=== PATIENT | male | born 1955 | race Caucasian/White ===

== ENCOUNTER 2017-07-14 21:12 | Emergency (ER) | payer BC ==
[~2017-07-14] VITALS: Ht 180.3 cm; Wt 76.0 kg
[2017-07-14 21:15] VITALS: BP 186/84; PULSE 61; RESP 16; TEMP 97.8; O2SAT 99
--- NOTE | 2017-07-14 21:28 | PD ---
Physical Exam Date Seen by Provider: Jul 14, 2017 Time Seen by Provider: 21:25 Narrative Pt is a 61 year old male presenting to the ED for evaluation of nausea, vomiting , body aches. This has been ongoing for approx. 12 hours. Pt reports abdominal pain. The pain is epigastric, clenching in nature when he attempts to eat or drink. Pt reports subjective fevers and sweats. Pt states the pain is a 5/10. VSS, awaiting bed placement. Data Data Last Documented VS Vital Signs Date Time Temp Pulse Resp B/P (MAP) Pulse Ox O2 Delivery O2 Flow Rate FiO2 07/14/17 21:15 97.8 61 16 186/84 (118) 99 Room Air [facility] Supervised Visit with CHALINO: Jen Allen Jul 14, 2017 21:28
[2017-07-14] MEDS ORDERED: SODIUM CHLOR 0.9% 1000 ML INJ 1,000 ML IV SCH (21:51)
[2017-07-14] MEDS ORDERED: ONDANSETRON HCL 4 MG/2 ML VIAL IVP ONE (22:00)
[2017-07-14] MEDS ORDERED: SODIUM CHLORIDE 0.9% FLUSH 10 ML FLUSH IV FLUSH PRN (22:00)
[2017-07-14] MEDS ORDERED: ALUMINUM/MAGNESIUM/SIMETH 30 ML CUP PO ONE (22:00)
[2017-07-14] MEDS ORDERED: LIDOCAINE VISCOUS 2% SOLN 15 ML UDC PO ONE (22:00)
[2017-07-14] MEDS ORDERED: PANTOPRAZOLE SODIUM 40 MG VIAL IVP ONE (22:00)
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
[2017-07-14 22:11] VITALS: BP 171/74; PULSE 61; O2SAT 99
[2017-07-14 22:54] LABS: BASOPHIL % 0.2 % (0.0-2.0); EOSINOPHIL % 0.1 % (0.0-4.0); HEMATOCRIT 48.4 % (39.0-51.0); LYMPH % 12.3 % (9.0-44.0); LYMPHOCYTE # 1.3 TH/MM3 (1.0-4.8); MEAN CELL VOLUME 91.8 FL (80.0-100.0); MEAN CORPUSCULAR HEMOGLOBIN 31.7 PG (27.0-34.0); MEAN CORPUSCULAR HGB CONC 34.5 % (32.0-36.0); MONO % 3.3 % (0.0-8.0); NEUT % 84.1 % (16.0-70.0); PLATELET COUNT 154 TH/MM3 (150-450); RED BLOOD COUNT 5.27 MIL/MM3 (4.50-5.90); RED CELL DISTRIBUTION WIDTH 13.4 % (11.6-17.2); WHITE BLOOD COUNT 10.7 TH/MM3 (4.0-11.0)
[2017-07-14 22:56] LABS: HEMO FLAGS AUTO DIFF
[2017-07-14 23:13] LABS: ALKALINE PHOSPHATASE 65 U/L (45-117); TOTAL BILIRUBIN ADULT 0.8 MG/DL (0.2-1.0)
[2017-07-14 23:15] LABS: PLATELET ESTIMATE SMEAR NORMAL (NORMAL)
[2017-07-14 23:16] LABS: PLATELET MORPHOLOGY NORMAL (NORMAL); SCAN/DIFF AUTO DIFF CONFIRMED
[2017-07-14 23:17] LABS: ALT (GPT) 43 U/L (12-78); ANION GAP 8 MEQ/L (5-15); AST (GOT) 40 U/L (15-37); BICARBONATE 25.6 MEQ/L (21.0-32.0); BLOOD UREA NITROGEN 18 MG/DL (7-18); CHLORIDE 106 MEQ/L (98-107); GLOMERULAR FILTRATION RATE 78 ML/MIN (>89); SODIUM (NA) 140 MEQ/L (136-145)
[2017-07-14 23:18] LABS: POTASSIUM 4.4 MEQ/L (3.5-5.1)
[2017-07-15 01:00] VITALS: BP 126/58; PULSE 75; RESP 20; O2SAT 97
[2017-07-15] MEDS ORDERED: ONDANSETRON HCL 4 MG/2 ML VIAL IV PUSH ONE (01:15)
[2017-07-15] MEDS ORDERED: KETOROLAC TROMETHAMINE 30 MG/ML (IVP) VIAL IV PUSH ONE (01:15)
[2017-07-15] MEDS ORDERED: SODIUM CHLOR 0.9% 1000 ML INJ 1,000 ML IV ONE (01:15)
[2017-07-15 01:17] LABS: BLOOD, URINE NEG (NEG); COMMENT (UR) CULT NOT INDICATED; CULTURE IF INDICATED CULT NOT INDICATED; GLUCOSE,URINE NEG (NEG); KETONE, URINE 150 mg/dL (NEG); MUCUS URINE FEW /lpf (OCC); NITRITE,URINE NEG (NEG); PH, URINE 5.5 (5.0-8.5); SQUAMOUS EPITHELIAL CELL URINE <1 /hpf (0-5); URINE COLOR YELLOW (YELLW/STRAW)
[2017-07-15] MEDS ORDERED: ZOFR4TAB3 SL (02:35)
--- NOTE | 2017-07-15 02:36 | PD ---
Physical Exam Date Seen by Provider: Jul 15, 2017 Time Seen by Provider: 02:33 Narrative GENERAL: Well developed well-nourished male in no acute distress no respiratory distress SKIN: Warm and dry. HEAD: Normocephalic. EYES: No scleral icterus. No injection or drainage. NECK: Supple, trachea midline. No JVD or lymphadenopathy. CARDIOVASCULAR: Regular rate and rhythm without murmurs, gallops, or rubs. RESPIRATORY: Breath sounds equal bilaterally. No accessory muscle use. GASTROINTESTINAL: Abdomen soft, non-tender, nondistended. MUSCULOSKELETAL: No cyanosis, or edema. BACK: Nontender without obvious deformity. No CVA tenderness. Data Data Last Documented VS Vital Signs Date Time Temp Pulse Resp B/P (MAP) Pulse Ox O2 Delivery O2 Flow Rate FiO2 07/15/17 01:00 75 20 126/58 (80) 97 Room Air 07/14/17 21:15 97.8 Orders Orders Complete Blood Count With Diff (07/14/17 21:51) Comprehensive Metabolic Panel (07/14/17 21:51) Lipase (07/14/17 21:51) Urinalysis - C+S If Indicated (07/14/17 21:51) Iv Access Insert/Monitor (07/14/17 21:51) Ecg Monitoring (07/14/17 21:51) Oximetry (07/14/17 21:51) Ondansetron Inj (Zofran Inj) (07/14/17 22:00) Pantoprazole Inj (Protonix Inj) (07/14/17 22:00) Sodium Chlor 0.9% 1000 Ml Inj (Ns 1000 M (07/14/17 21:51) Sodium Chloride 0.9% Flush (Ns Flush) (07/14/17 22:00) Al-Mag Hy-Si 40-40-4 Mg/Ml Liq (Mag-Al P (07/14/17 22:00) Lidocaine 2% Viscous (Xylocaine 2% Visco (07/14/17 22:00) Influenzae A/B Antigen (07/14/17 21:51) Ondansetron Inj (Zofran Inj) (07/15/17 01:15) Ketorolac Inj (Toradol Inj) (07/15/17 01:15) Sodium Chlor 0.9% 1000 Ml Inj (Ns 1000 M (07/15/17 01:15) Labs Laboratory Tests Test 07/14/17 22:24 07/15/17 00:57 White Blood Count 10.7 TH/MM3 Red Blood Count 5.27 MIL/MM3 Hemoglobin 16.7 GM/DL Hematocrit 48.4 % Mean Corpuscular Volume 91.8 FL Mean Corpuscular Hemoglobin 31.7 PG Mean Corpuscular Hemoglobin Concent 34.5 % Red Cell Distribution Width 13.4 % Platelet Count 154 TH/MM3 Mean Platelet Volume 8.9 FL Neutrophils (%) (Auto) 84.1 % Lymphocytes (%) (Auto) 12.3 % Monocytes (%) (Auto) 3.3 % Eosinophils (%) (Auto) 0.1 % Basophils (%) (Auto) 0.2 % Neutrophils # (Auto) 9.0 TH/MM3 Lymphocytes # (Auto) 1.3 TH/MM3 Monocytes # (Auto) 0.4 TH/MM3 Eosinophils # (Auto) 0.0 TH/MM3 Basophils # (Auto) 0.0 TH/MM3 CBC Comment AUTO DIFF Differential Comment AUTO DIFF CONFIRMED Platelet Estimate NORMAL Platelet Morphology Comment NORMAL Red Cell Morphology Comment NORMAL Blood Urea Nitrogen 18 MG/DL Creatinine 0.98 MG/DL Random Glucose 114 MG/DL Total Protein 8.3 GM/DL Albumin 4.3 GM/DL Calcium Level 9.0 MG/DL Alkaline Phosphatase 65 U/L Aspartate Amino Transf (AST/SGOT) 40 U/L Alanine Aminotransferase (ALT/SGPT) 43 U/L Total Bilirubin 0.8 MG/DL Sodium Level 140 MEQ/L Potassium Level 4.4 MEQ/L Chloride Level 106 MEQ/L Carbon Dioxide Level 25.6 MEQ/L Anion Gap 8 MEQ/L Estimat Glomerular Filtration Rate 78 ML/MIN Lipase 114 U/L Urine Color YELLOW Urine Turbidity CLEAR Urine pH 5.5 Urine Specific Brent 1.027 Urine Protein TRACE mg/dL Urine Glucose (UA) NEG mg/dL Urine Ketones 150 mg/dL Urine Occult Blood NEG Urine Nitrite NEG Urine Bilirubin NEG Urine Urobilinogen LESS THAN 2.0 MG/DL Urine Leukocyte Esterase NEG Urine RBC 1 /hpf Urine WBC 1 /hpf Urine Squamous Epithelial Cells <1 /hpf Urine Mucus FEW /lpf Microscopic Urinalysis Comment CULT NOT INDICATED MDM Medical Record Reviewed: Yes Supervised Visit with CHALINO: Yes Interpretation(s) CBC & BMP Diagram 07/14/17 22:24 Total Protein 8.3 H, Albumin 4.3, Calcium Level 9.0, Alkaline Phosphatase 65, Aspartate Amino Transf (AST/SGOT) 40 H, Alanine Aminotransferase (ALT/SGPT) 43, Total Bilirubin 0.8 Vital Signs Date Time Temp Pulse Resp B/P (MAP) Pulse Ox O2 Delivery O2 Flow Rate FiO2 07/15/17 01:00 75 20 126/58 (80) 97 Room Air 07/14/17 22:11 61 171/74 (106) 07/14/17 22:11 99 Room Air 07/14/17 21:15 97.8 61 16 186/84 (118) 99 Room Air Differential Diagnosis Gastritis gastroenteritis food borne illness dehydration a likely disturbance Narrative Course Patient with 1 day of multiple episodes of vomiting without hematemesis coffee- ground emesis and denies any melena hematochezia without loss of appetite no fever chills with normal range lab values and vital signs has received IV fluid hydration and 2 doses of Zofran 4 mg IV clinically is markedly improved taking oral hydration at this time on reexamination abdomen is soft nontender no guarding or rebound patient is stable for outpatient management. Diagnosis Primary Impression: Gastroenteritis Referrals: Primary Care Physician call for appointment Patient Instructions: General Instructions Additional Instruction: Increase fluid hydration Follow clear liquid diet for next 12-24 hours advance as tolerated to bland/ Lala diet and regular diet as tolerated Monitor temperature every 4 hours take acetaminophen/Tylenol as needed for fever 100.4F or greater Return to the emergency department for any concerns or change in condition Med/Other Pt SpecificInfo: Prescription(s) given Scripts Ondansetron Odt (Zofran Odt) 4 Mg Tab 4 MG SL Q6HR Y for Nausea/Vomiting, #12 TAB 0 Refills Prov: Sheri Aleman MD 07/15/17 Disposition: 01 DISCHARGE HOME Condition: Stable Sheri Aleman MD Jul 15, 2017 02:35
== END 2017-07-15 03:21 | disposition home or self-care (01) ==
LOC: NEPC 21:12
DX: K52.9 Noninfective gastroenteritis and colitis, unspecified (principal)
CPT/HCPCS: 80053; 81001; 83690; 85025; 87804; 96361; 96374; 96375; 96376; 99284; C9113; J1885; J2405; J7030